=== PATIENT | male | born 1990 | race Caucasian/White ===

== ENCOUNTER 2023-08-24 07:09 | Emergency (ER) | payer OTHER ==
[2023-08-24 07:54] VITALS: PULSE 77; TEMP 98.5
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
[2023-08-24 09:04] VITALS: BP 128/78
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
[2023-08-24 09:48] VITALS: O2SAT 100
== END 2023-08-24 09:57 | disposition home or self-care (01) ==
LOC: ED 07:09
DX: Z04.2 Encounter for examination and observation following work accident (principal); S00.03XA Contusion of scalp, initial encounter; S70.02XA Contusion of left hip, initial encounter; V87.8XXA Person injured in other specified noncollision transport accidents involving motor vehicle (traffic), initial encounter; Y92.64 Mine or pit as the place of occurrence of the external cause; Y99.0 Civilian activity done for income or pay
CPT/HCPCS: 70450; 73502; 99283